=== PATIENT | male | born 1980 | race Caucasian/White ===

== ENCOUNTER 2016-06-01 11:59 | Emergency (ER) | payer MEDICAID ==
[2016-06-01 12:11] VITALS: BP 128/71; RESP 16; TEMP 97; O2SAT 98
--- NOTE | 2016-06-01 12:33 | ED PDOC ---
HPI: General Adult Time Seen by Provider: 06/01/16 12:14 Chief Complaint (Nursing): Palpitations Chief Complaint (Provider): palpitations History Per: Rounding Machine Tender (Jenn Lance) History/Exam Limitations: no limitations Additional Complaint(s): 36yo male w/ Hx HIV comes to the ED complaining of intermittent palpitations and left side chest pain for 2 weeks. States he doesn't know what makes it better or worse. States symptoms mostly occur when laying in bed. Unable to describe why he came in today. Denies fever, cough, shortness of breath. No Hx DVT/PE. He reports recent unintended weight loss. Past Medical History Reviewed: Historical Data, Nursing Documentation, Vital Signs Vital Signs: Last Vital Signs Temp 97 F L 06/01/16 12:09 Pulse 80 06/01/16 14:08 Resp 16 06/01/16 12:09 BP 128/71 06/01/16 12:09 Pulse Ox 98 06/01/16 14:08 - Medical History PMH: Diabetes, HIV - Surgical History Surgical History: No Surg Hx - Family History Family History: Denies: MS, CAD - Social History Current smoker - smoking cessation education provided: Yes Drugs: Denies - Home Medications Home Medications: Ambulatory Orders Medication Instructions Recorded Emtricitabine/Tenofovir Diso 1 tab PO DAILY 06/01/16 [Truvada 200 MG-300 MG] MetFORMIN [glucoPHAGE] 1 tab PO BID 06/01/16 Raltegravir Potassium [Isentress] 1 tab PO BID 06/01/16 - Allergies Allergies/Adverse Reactions: Allergies Allergy/AdvReac Type Severity Reaction Status Date / Time No Known Allergies Allergy Verified 06/01/16 12:17 Review of Systems ROS Statement: Except As Marked, All Systems Reviewed And Found Negative Constitutional: Negative for: Fever Eyes: Negative for: Pain ENT: Negative for: Ear Pain Cardiovascular: Positive for: Chest Pain, Palpitations Respiratory: Negative for: Cough, Shortness of Breath Gastrointestinal: Negative for: Nausea, Vomiting, Abdominal Pain, Diarrhea, Constipation Genitourinary Male: Negative for: Dysuria, Frequency, Hematuria Musculoskeletal: Negative for: Neck Pain Skin: Negative for: Rash Neurological: Negative for: Weakness Physical Exam - Reviewed Nursing Documentation Reviewed: Yes Vital Signs Reviewed: Yes - Physical Exam Appears: Positive for: Well, Non-toxic, No Acute Distress Head Exam: Positive for: ATRAUMATIC, NORMAL INSPECTION, NORMOCEPHALIC Skin: Positive for: Warm, Dry Eye Exam: Positive for: EOMI, PERRL Cardiovascular/Chest: Positive for: Regular Rate, Rhythm Respiratory: Positive for: Normal Breath Sounds. Negative for: Rales, Rhonchi, Wheezing Gastrointestinal/Abdominal: Positive for: Soft. Negative for: Tenderness Extremity: Positive for: Normal ROM Neurologic/Psych: Positive for: Alert, Oriented - Laboratory Results Result Diagrams: 06/01/16 12:30 06/01/16 12:30 - ECG ECG: Positive for: Interpreted By Me, Viewed By Me ECG Rhythm: Positive for: Sinus Rhythm. Negative for: ST/T Changes Rate: 80 O2 Sat by Pulse Oximetry: 98 (RA) Pulse Ox Interpretation: Normal Medical Decision Making Medical Decision Makin Differential includes atypical chest pain, ptx, pna, thyroid disorder, PE. Presentation is atypical for acs. plan: -labs -cxr -reassess 1:14PM EKG as above. Cxray negative. 14:06 D-dimer negative. Trop x 1 negative. Labs grossly normal. Tsh and free t4 WNL. I have no explanation for intermittent chest pain but symptoms have been for greater than 2 weeks. Through the use of a comoran intepretor I explained to patient the importance of following up with cardiology. Disposition - Clinical Impression Clinical Impression: Palpitations - Disposition Referrals: Jayce Mohamud MD [Staff Provider] - Disposition: Routine/Home Disposition Time: 14:07 Condition: GOOD Additional Instructions: Follow up with cardiology and PMD for further evaluation. Return to ED if condition worsens. Instructions: Chest Pain (ED) Print Language: SOUTH SUDANESE Additional Comments - Additional Comments Additional Comments: Scribe Attestation: Documented by Fernando Aleman acting as a scribe for Mary Garcia MD. Scribe Attestation: All medical record entries made by the Scribe were at my direction and personally dictated by me. I have reviewed the chart and agree that the record accurately reflects my personal performance of the history, physical exam, medical decision making, and the department course for this patient. I have also personally directed, reviewed, and agree with the discharge instructions and disposition.
[2016-06-01 12:41] VITALS: PULSE 80
[2016-06-01 13:06] LABS: BASO # 0.1 K/uL (0.0-0.2); BASO % 0.9 % (0.0-2.0); EOS % 0.7 % (0.0-4.0); LYMPH # 1.8 K/uL (1.0-4.3); LYMPH % 28.6 % (20.0-40.0); MEAN CELL VOLUME 81.7 fl (80.0-94.0); MEAN CORPUSCULAR HEMOGLOBIN 27.4 pg (27.0-31.0); MEAN CORPUSCULAR HGB CONC 33.5 g/dL (33.0-37.0); MEAN PLATELET VOLUME 9.1 fl (7.2-11.7); MONO # 0.6 K/uL (0.0-0.8); MONO % 10.2 % (0.0-10.0); NEUT # 3.7 K/uL (1.8-7.0); NEUT % 59.6 % (50.0-75.0); RED CELL DISTRIBUTION WIDTH 13.6 % (11.5-14.5); WHITE BLOOD COUNT 6.1 K/uL (4.8-10.8)
--- NOTE | 2016-06-01 13:09 | RAD ---
HISTORY: Chest pain COMPARISON: 04/26/2015 TECHNIQUE: Chest PA and lateral FINDINGS: LUNGS: The lungs are well inflated and clear. PLEURA: No significant pleural effusion identified. No pneumothorax apparent. CARDIOVASCULAR: Normal. OSSEOUS STRUCTURES: No significant abnormalities. VISUALIZED UPPER ABDOMEN: Normal. OTHER FINDINGS: None. IMPRESSION: No active pulmonary disease.
[2016-06-01 13:32] LABS: ALB/GLOB RATIO 1.7 (1.0-2.1); ALKALINE PHOSPHATASE 84 U/L (38-126); ALT/SGPT 67 U/L (21-72); AST/SGOT 33 U/L (17-59); BILIRUBIN,TOTAL 1.3 mg/dl (0.2-1.3); BLOOD UREA NITROGEN 16 mg/dl (9-20); CALCIUM 9.7 mg/dL (8.4-10.2); CARBON DIOXIDE 23 mmol/L (22-30); CHLORIDE 103 mmol/L (98-107); GFR AFRICAN-AMERICAN > 60; GLUCOSE,RANDOM 166 mg/dL (75-110); POTASSIUM 4.2 MMOL/L (3.6-5.0); SODIUM 145 mmol/l (132-148); TOTAL PROTEIN 7.7 G/DL (6.3-8.2)
== END 2016-06-01 14:16 | disposition home or self-care (01) ==
LOC: H.ER 11:59
DX: R00.2 Palpitations (principal); E11.9 Type 2 diabetes mellitus without complications; F17.200 Nicotine dependence, unspecified, uncomplicated; Z79.84 Long term (current) use of oral hypoglycemic drugs; R07.9 Chest pain, unspecified